=== PATIENT | female | born 1980 | race Caucasian/White ===

== ENCOUNTER 2016-05-14 11:13 | Emergency (ER) | payer SELFPAY ==
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
== END 2016-05-14 12:02 | disposition home or self-care (01) ==
LOC: ER 11:13
DX: R20.0 Anesthesia of skin (principal)
CPT/HCPCS: 99282